=== PATIENT | male | born 1985 | race American Indian/Alaskan Native ===

== ENCOUNTER 2021-02-05 21:40 | Emergency (ER) | payer SELFPAY ==
[2021-02-05 22:47] VITALS: BP 108/75
[2021-02-05] MEDS ORDERED: IBUPROFEN 800 MG TAB PO ONE (22:47)
[2021-02-06] MEDS ORDERED: oxyCODONE /ACETAMINOPHEN 5-325MG TAB PO ONE (02:38)
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
== END 2021-02-06 03:05 | disposition home or self-care (01) ==
LOC: ED 21:40
DX: M79.605 Pain in left leg (principal); Z76.0 Encounter for issue of repeat prescription; Z79.899 Other long term (current) drug therapy
CPT/HCPCS: 99282